=== PATIENT | male | born 2000 | race Caucasian/White ===

== ENCOUNTER 2021-08-30 17:51 | Emergency (ER) | payer OTHER ==
[~2021-08-30] VITALS: Ht 172.7 cm; Wt 132.0 kg
[2021-08-30 18:53] VITALS: BP 152/106
[2021-08-30] MEDS ORDERED: PREDNISONE 20MG TABLET PO ONE (21:30)
[2021-08-30] MEDS ORDERED: P50 MT (22:21)
== END 2021-08-30 22:26 | disposition home or self-care (01) ==
LOC: ER 17:51
DX: G51.0 Bell's palsy (principal); R03.0 Elevated blood-pressure reading, without diagnosis of hypertension
CPT/HCPCS: 99284; J7512

== ENCOUNTER 2022-05-08 09:16 | Emergency (ER) | payer MEDICAID, OTHER ==
[~2022-05-08] VITALS: Ht 172.7 cm; Wt 134.0 kg
[~2022-05-08 09:16] MED LIST: P50 MT
[2022-05-08 17:29] LABS: CHLORIDE 97 mEq/L (98-107)
[2022-05-08 17:32] LABS: BASOPHILS % 0.5 % (0.0-2.0); EOSINOPHILS % 0.7 % (0.0-5.0); HEMATOCRIT. 49.4 % (42.0-52.0); HEMOGLOBIN. 16.5 g/dL (14.0-18.0); LYMPHOCYTES % 35.9 % (20.0-50.0); MEAN CORPUSCULAR HEMOGLOBIN 26.9 pg (28.0-32.0); MEAN CORPUSCULAR VOLUME 80.5 fL (80.0-94.0); MEAN PLATELET VOLUME 9.7 fl (7.4-10.4); MONOCYTES % 4.4 % (2.0-8.0); NEUTROPHILS % 58.5 % (40.0-76.0); PLATELET 350 x1000/uL (130-400); RED BLOOD CELL COUNT 6.14 mill/uL (4.7-6.1); RED CELL DISTRIBUTION WIDTH 13.7 % (11.6-14.6)
[2022-05-08 17:46] LABS: BETA HYDROXYBUTYRATE 0.4 mMol/L (0.0-0.3)
[2022-05-08] MEDS ORDERED: SODIUM CHLORIDE 0.9% 1,000 ML IV ONE (19:15)
[2022-05-08 19:45] LABS: CLARITY URINE CLEAR (CLEAR); COLOR URINE DARK YELLOW (YELLOW); KETONES URINE TRACE (NEGATIVE); LEUKOCYTE ESTERASE URINE NEGATIVE (NEGATIVE); NITRITE URINE NEGATIVE (NEGATIVE); OCCULT BLOOD URINE NEGATIVE (NEGATIVE); PROTEIN URINE 3+ (NEGATIVE); SPECIFIC GRAVITY URINE 1.038 (1.005-1.030)
[2022-05-08] MEDS ORDERED: METF-873 MT (21:07)
[2022-05-08 21:35] VITALS: BP 139/99
== END 2022-05-08 21:43 | disposition home or self-care (01) ==
LOC: ER 09:16
DX: R73.9 Hyperglycemia, unspecified (principal); R35.89 Other polyuria; J45.909 Unspecified asthma, uncomplicated
CPT/HCPCS: 36415; 80053; 81003; 82010; 82962; 85025; 96360; 99283; J7030

== ENCOUNTER 2022-05-16 08:08 | Emergency (ER) | payer MEDICAID, OTHER ==
[~2022-05-16] VITALS: Ht 172.7 cm; Wt 134.0 kg
[~2022-05-16 08:08] MED LIST changes: +METF-873 MT
[2022-05-16] MEDS ORDERED: SODIUM CHLORIDE 0.9% 1,000 ML IV ONE ×2 (09:30→10:45)
[2022-05-16 10:43] LABS: BASOPHILS % 0.7 % (0.0-2.0); EOSINOPHILS % 1.2 % (0.0-5.0); HEMATOCRIT. 43.9 % (42.0-52.0); HEMOGLOBIN. 14.8 g/dL (14.0-18.0); LYMPHOCYTES % 30.3 % (20.0-50.0); MEAN CORPUSCULAR HEMOGLOBIN 27.5 pg (28.0-32.0); MEAN CORPUSCULAR VOLUME 81.3 fL (80.0-94.0); MEAN PLATELET VOLUME 10.1 fl (7.4-10.4); MONOCYTES % 5.2 % (2.0-8.0); NEUTROPHILS % 62.6 % (40.0-76.0); PLATELET 271 x1000/uL (130-400); RED BLOOD CELL COUNT 5.39 mill/uL (4.7-6.1); RED CELL DISTRIBUTION WIDTH 13.7 % (11.6-14.6)
[2022-05-16 11:11] LABS: CHLORIDE 100 mEq/L (98-107)
[2022-05-16 11:18] LABS: BETA HYDROXYBUTYRATE 0.6 mMol/L (0.0-0.3); PHOSPHORUS 3.2 mg/dL (2.5-4.9)
[2022-05-16 11:58] LABS: CLARITY URINE CLOUDY (CLEAR); COLOR URINE YELLOW (YELLOW); KETONES URINE 1+ (NEGATIVE); LEUKOCYTE ESTERASE URINE NEGATIVE (NEGATIVE); NITRITE URINE NEGATIVE (NEGATIVE); OCCULT BLOOD URINE NEGATIVE (NEGATIVE); PH URINE 5.5 (4.5-8.0); PROTEIN URINE NEGATIVE (NEGATIVE); SPECIFIC GRAVITY URINE 1.023 (1.005-1.030); UROBILINOGEN URINE 0.2 E.U./dL (0.2-1.0)
[2022-05-16 12:13] VITALS: BP 147/97
== END 2022-05-16 12:30 | disposition home or self-care (01) ==
LOC: ER 08:08
DX: E11.65 Type 2 diabetes mellitus with hyperglycemia (principal); J45.909 Unspecified asthma, uncomplicated; D72.829 Elevated white blood cell count, unspecified
CPT/HCPCS: 36415; 80053; 81003; 82010; 82962; 83735; 84100; 85025; 99283; J7030

== ENCOUNTER 2022-05-27 00:55 | Emergency (ER) | payer OTHER ==
[~2022-05-27] VITALS: Ht 177.8 cm; Wt 136.4 kg
[2022-05-27] MEDS ORDERED: ACETAMINOPHEN 325MG TABLET PO ONE (01:30)
[2022-05-27 02:27] VITALS: BP 130/81
== END 2022-05-27 02:39 | disposition home or self-care (01) ==
LOC: ER 00:55
DX: R20.2 Paresthesia of skin (principal); E11.9 Type 2 diabetes mellitus without complications
CPT/HCPCS: 99282

== ENCOUNTER 2022-12-03 15:17 | Emergency (ER) | payer OTHER ==
[~2022-12-03] VITALS: Ht 175.3 cm; Wt 116.0 kg
[2022-12-03 16:10] VITALS: O2SAT 100
[2022-12-03] MEDS ORDERED: KETOROLAC 60MG/2ML VIAL IM STA (16:52)
[2022-12-03 17:12] LABS: CLARITY URINE CLEAR (CLEAR); COLOR URINE YELLOW (YELLOW); GLUCOSE URINE NEGATIVE (NEGATIVE); KETONES URINE NEGATIVE (NEGATIVE); LEUKOCYTE ESTERASE URINE NEGATIVE (NEGATIVE); NITRITE URINE NEGATIVE (NEGATIVE); OCCULT BLOOD URINE NEGATIVE (NEGATIVE); PROTEIN URINE NEGATIVE (NEGATIVE); UROBILINOGEN URINE 0.2 E.U./dL (0.2-1.0)
[2022-12-03] MEDS ORDERED: CYCL10TA21 MT (17:24)
[2022-12-03] MEDS ORDERED: IBUP-2029 MT (17:24)
[2022-12-03 18:15] VITALS: BP 122/79; PULSE 69; RESP 18; TEMP 98.2
== END 2022-12-03 19:06 | disposition home or self-care (01) ==
LOC: ER 15:17
DX: R10.9 Unspecified abdominal pain (principal); E11.9 Type 2 diabetes mellitus without complications; E03.9 Hypothyroidism, unspecified
CPT/HCPCS: 99283; 81003; 96372; J1885